=== PATIENT | male | born 2000 ===

== ENCOUNTER 2018-03-24 02:47 | Emergency (ER) | payer BC ==
--- OUTSIDE RECORDS SUMMARY | 2018-03-24 02:59 | XMS REPORT | Continuity of Care Document ---
:2000 External Reference #:[id number] Author Name Jamilah David Care Team Providers Name Role Phone [facility] Primary Care Physician Unavailable Payers Type Date Identification Numbers Payment Provider Subscriber Policy Number: [id number] [employer] Yesenia Hernandez PayID: [id number] [address] [address] [place] [address] Advance Directives Description No Information Available Problems Description No Information Family History Date Family Member(s) Problem(s) Comments General Cancer Social History Type Date Description Comments Sex Unknown Marital Status Single Lives With Alone Occupation Student ETOH Use Denies alcohol use Tobacco Use Start: Unknown Patient has never smoked Recreational Drug Use Denies Drug Use Smoking Status Reviewed: 03/05/18 Patient has never smoked Exercise Type/Frequency Exercises regularly Allergies, Adverse Reactions, Alerts Description No Known Drug Allergies Medications Medication Date Status Form Strength Qnty SIG Indications Ordering Provider Flonase Active Suspension 50mcg/Act 2 puffs Unknown Allergy 000 each nare Relief every in the morning Immunizations Description No Information Available Vital Signs Date Vital Result Comment 03/05/2018 9:11am Height 67 inches 5'7" Weight 150.00 lb Heart Rate 64 /min BP Systolic 116 mmHg BP Diastolic 70 mmHg Respiratory Rate 16 /min Body Temperature 97.4 F BMI (Body Mass Index) 23.5 kg/m2 Height Percentile 18 % Weight Percentile 41st Results Description No Information Available Procedures Description No Information Available Encounters Description No Information Available Plan of Treatment 03/05/2018 - Scott Zaragoza M.D.P83.81 Umbilical granulomaFollow up:As needed
[2018-03-24] MEDS ORDERED: Amiodarone 150 MG IVPREMIX* 150 MG/100 ML BAG IV ONE (03:23)
[2018-03-24] MEDS ORDERED: Amiodarone 360 MG IVPREMIX* 360 MG/200 ML BAG IV ONE (03:23)
[2018-03-24] MEDS ORDERED: Aspirin 81 mg CHEW TAB* 81 MG TAB.CHEW PO ONE (03:23)
--- NOTE | 2018-03-24 03:47 | ED ---
Skin Complaint - HPI Summary HPI Summary: Patient is a 17 y/o M presenting to ED with complaints of a "white substance" to his left index finger with tingling. He states that Sx onset when he was playing basketball earlier. Patient has a picture of his left hand which shows more diffuse white pigmentation on his left hand. He states that this Sx spontaneously resolved by itself. Patient also reports that he spilled "chemicals" on the back of his hands a few months ago, states that he has had intermittent numbness at the back of his hands since. PMHx is denied. On triage , pain denied, nothing is noted to aggravate/alleviate Sx. Home medications and allergies are reviewed. - History of Current Complaint Chief Complaint: EDExtremityUpper Time Seen by Provider: 03/24/18 02:55 Stated Complaint: LEFT HAND RASH/SPOT Hx Obtained From: Patient Onset/Duration: Started Hours Ago, Still Present Skin Exposure Onset/Duration: Hours Ago Timing: Constant, Lasting Hours Current Severity: None - pain denied Pain Intensity: 0 Pain Scale Used: 0-10 Numeric - 0/10 Skin Location: Hand - left index finger Aggravating Symptom(s): Nothing Alleviating Symptom(s): Nothing Associated Signs & Symptoms: Negative - Allergy/Home Medications Allergies/Adverse Reactions: Allergies Allergy/AdvReac Type Severity Reaction Status Date / Time No Known Allergies Allergy Verified 03/24/18 02:50 Home Medications: Home Medications NK [No Home Medications Reported] 03/24/18 [History Confirmed 03/24/18] PMH/Surg Hx/FS Hx/Imm Hx Sensory History: Denies: Hx Legally Blind, Hx Deafness Opthamlomology History: Denies: Hx Legally Blind EENT History: Denies: Hx Deafness Infectious Disease History: No Infectious Disease History: Denies: Traveled Outside the [place] in Last 30 Days - Family History Known Family History: Negative: Blood Disorder - Social History Alcohol Use: None Substance Use Type: Reports: None Smoking Status (MU): Never Smoked Tobacco Review of Systems Skin: Other - POSITIVE - WHITE PIGMENTATION OF LEFT INDEX FINGER Neurological: Other - POSITIVE - TINGLING OF LEFT INDEX FINGER All Other Systems Reviewed And Are Negative: Yes Physical Exam - Summary Physical Exam Summary: VITAL SIGNS: Reviewed. GENERAL: Patient is a well-developed and nourished male who is lying comfortable in the stretcher. Patient is not in any acute respiratory distress. HEAD AND FACE: No signs of trauma. No ecchymosis, hematomas or skull depressions. No sinus tenderness. EYES: PERRLA, EOMI x 2, No injected conjunctiva, no nystagmus. EARS: Hearing grossly intact. Ear canals and tympanic membranes are within normal limits. MOUTH: Oropharynx within normal limits. NECK: Supple, trachea is midline, no adenopathy, no JVD, no carotid bruit, no c- spine tenderness, neck with full ROM. CHEST: Symmetric, no tenderness at palpation LUNGS: Clear to auscultation bilaterally. No wheezing or crackles. CVS: Regular rate and rhythm, S1 and S2 present, no murmurs or gallops appreciated. ABDOMEN: Soft, non-tender. No signs of distention. No rebound no guarding, and no masses palpated. Bowel sounds are normal. EXTREMITIES: FROM in all major joints, no edema, no cyanosis or clubbing. NEURO: Alert and oriented x 3. No acute neurological deficits. Speech is normal and follows commands. SKIN: Dry and warm; white pigmentation over left index finger, palmar surface. Area is non-tender. Triage Information Reviewed: Yes Vital Signs On Initial Exam: Initial Vitals Temp Pulse Resp BP Pulse Ox 97.5 F 82 16 151/95 97 03/24/18 02:50 03/24/18 02:50 03/24/18 02:50 03/24/18 02:50 03/24/18 02:50 Vital Signs Reviewed: Yes Diagnostics - Vital Signs Vital Signs Temp Pulse Resp BP Pulse Ox 03/24/18 02:50 97.5 F 82 16 151/95 97 - Laboratory Lab Statement: Any lab studies that have been ordered have been reviewed, and results considered in the medical decision making process. Course/Dx - Course Course Of Treatment: Patient is a 17 y/o M presenting to ED with complaints of a "white substance" to his left index finger with tingling. He states that Sx onset when he was playing basketball earlier. Patient has a picture of his left hand which shows more diffuse white pigmentation on his left hand. He states that this Sx spontaneously resolved by itself. Patient also reports that he spilled "chemicals" on the back of his hands a few months ago, states that he has had intermittent numbness at the back of his hands since. PMHx is denied. On physical exam, white pigmentation over left index finger, palmar surface. Area is non-tender. Patient states that tingling in finger is resolving. He will be discharged to home and follow up with PCP. - Diagnoses Provider Diagnoses: Skin abnormality Discharge - Sign-Out/Discharge Documenting (check all that apply): Patient Departure - discharge Patient Received Moderate/Deep Sedation with Procedure: No - NO PROCEDURES DONE - Discharge Plan Condition: Stable Disposition: HOME Patient Education Materials: Paresthesia (ED) Referrals: [facility] [Provider Group] - 2 Days Care [facility] [Outside] - 2 Days Additional Instructions: RETURN TO THE EMERGENCY DEPARTMENT FOR CHANGING OR WORSENING SYMPTOMS. FOLLOW UP WITH PRIMARY CARE PHYSICIAN IN 1-2 DAYS. - Attestation Statements Document Initiated by Scribe: Yes Documenting Scribe: PRISCA MATTHEW Provider For Whom Lidaibe is Documenting (Include Credential): IGNACIA CARTER MD Scribe Attestation: IPRISCA , scribed for IGNACIA CARTER MD on 03/24/18 at 0538. Status of Scribe Document: Ready
== END 2018-03-24 04:31 | disposition home or self-care (01) ==
LOC: ED 02:47
DX: L98.9 Disorder of the skin and subcutaneous tissue, unspecified (principal)
CPT/HCPCS: 99282